=== PATIENT | male | born 1965 | race Caucasian/White ===

== ENCOUNTER 2017-07-03 00:43 | Emergency (ER) | payer OTHER ==
[2017-07-03 00:47] VITALS: BP 162/78; PULSE 66; RESP 16; TEMP 98.5; O2SAT 100
[2017-07-03] MEDS ORDERED: BACL10TA PO (02:09)
[2017-07-03] MEDS ORDERED: IBUP-232 PO (02:09)
--- NOTE | 2017-07-03 02:10 | PD ---
HPI Chief Complaint: Back/ Neck Pain or Injury Time Seen by Provider: 01:58 Travel History International Travel<30 days: No Contact w/Intl Traveler<30days: No Traveled to known affect area: No History of Present Illness HPI 48-year-old male presents for evaluation of neck stiffness. A few hours prior to arrival the patient was standing on a elevate her that dropped from the second floor to the first floor. The patient was standing. He did not follow the ground. Initially after the accident he had no pain. He developed some mild left-sided posterior neck soreness approximately one hour after the accident. The discomfort is aggravated by movement of the neck. He denies any numbness, tingling, weakness in the extremities, bowel or bladder incontinence, saddle anesthesia, chest pain or shortness of breath, abdominal pain, headache, nausea, vomiting. No history of neck or back surgery. He has no other complaints at this time. PFS Past Medical History Immunizations Current: Yes Tetanus Vaccination: > 5 Years Influenza Vaccination: Yes Social History Alcohol Use: No Tobacco Use: No Substance Use: No Allergies-Medications (Allergen,Severity, Reaction): Coded Allergies: No Known Allergies (Unverified , 07/03/17) Reported Meds & Prescriptions Reported Meds & Active Scripts Active Ibuprofen 600 Mg Tab 600 Mg PO Q6H PRN Baclofen 10 Mg Tab 10 Mg PO Q8HR PRN 7 Days Review of Systems Except as stated in HPI: all other systems reviewed are Neg Physical Exam Narrative GENERAL: Well-developed well-nourished male in no acute distress sitting upright in hospital bed. SKIN: Warm and dry. No bruising or soft tissue swelling. HEAD: Atraumatic. Normocephalic. EYES: Pupils equal and round. No scleral icterus. No injection or drainage. ENT: No nasal bleeding or discharge. Mucous membranes pink and moist. NECK: Trachea midline. No JVD. CARDIOVASCULAR: Regular rate and rhythm. No murmur appreciated. RESPIRATORY: No accessory muscle use. Clear to auscultation. Breath sounds equal bilaterally. MUSCULOSKELETAL: No obvious deformities. There is no tenderness to palpation along the cervical thoracic or lumbar midline spine. The patient maintains full range of motion of the neck. spontaneous use of the upper and lower extremities. NEUROLOGICAL: Awake and alert. No obvious cranial nerve deficits. Motor grossly within normal limits. Normal speech. Data Data Last Documented VS Vital Signs Date Time Temp Pulse Resp B/P Pulse Ox O2 Delivery O2 Flow Rate FiO2 07/03/17 00:47 98.5 66 16 162/78 100 Room Air Orders Ketorolac Inj (Toradol Inj) (07/03/17 02:15) MDM Medical Decision Making Medical Screen Exam Complete: Yes Emergency Medical Condition: Yes Medical Record Reviewed: Yes Differential Diagnosis Muscle strain, compression fracture, spinal cord contusion, herniated nucleus pulposus Narrative Course 51-year-old male with delayed onset mild left-sided neck soreness after being on a elevate her that dropped suddenly from a second floor to the first floor. Physical examination is reassuring. He has no vertebral tenderness to suggest compression fracture. He has no symptoms to suggest herniated nucleus pulposus. He has no symptoms of a spinal cord injury. He appears to have a muscle strain. He'll be treated symptomatically with a short course of NSAIDs, muscle relaxants. Diagnosis Primary Impression: Cervical strain Qualified Code: S16.1XXA - Strain of neck muscle, initial encounter Additional Instructions: Medication as needed. Take ibuprofen with meals. Do not drive or drink alcohol when taking baclofen. Follow up with primary care as needed. Return for any emergent medical conditions. Med/Other Pt SpecificInfo: Prescription(s) given Scripts Ibuprofen 600 Mg [id number] Mg PO Q6H PRN (Pain/Inflammation) #40 TAB Ref 0 Prov:Jennifer Jim MD 07/03/17 Baclofen 10 Mg Tab10 Mg PO Q8HR PRN (MUSCLE SPASM) 7 Days Ref 0 Prov:Jennifer Jim MD 07/03/17 Disposition: 01 DISCHARGE HOME Condition: Stable Alexys Barreto Jul 03, 2017 02:10
[2017-07-03] MEDS ORDERED: KETOROLAC TROMETHAMINE 60 MG/2 ML (IM) VIAL IM ONE (02:15)
== END 2017-07-03 02:19 | disposition home or self-care (01) ==
LOC: NEPD 00:43
DX: S16.1XXA Strain of muscle, fascia and tendon at neck level, initial encounter (principal); W17.89XA Other fall from one level to another, initial encounter
CPT/HCPCS: 96372; 99284; J1885